=== PATIENT | male | born 1980 | race Caucasian/White ===

== ENCOUNTER 2017-05-02 22:44 | Emergency (ER) | payer SELFPAY ==
[~2017-05-02] VITALS: Ht 162.6 cm; Wt 68.0 kg
[~2017-05-02 22:44] MED LIST: ASPIRIN PO; DOXYCYCLINE PO; ULTRAM PO; VICODIN PO
== END 2017-05-02 23:58 | disposition left against medical advice (07) ==
LOC: CED 22:44
DX: Z53.21 Procedure and treatment not carried out due to patient leaving prior to being seen by health care provider (principal)